=== PATIENT | male | born 1985 | race Caucasian/White ===

== ENCOUNTER 2018-09-22 22:13 | Emergency (ER) | payer MEDICAID ==
[~2018-09-22] VITALS: Ht 165.1 cm; Wt 54.4 kg
[2018-09-22 22:17] VITALS: BP 126/68
--- NOTE | 2018-09-22 22:30 | NUR ---
ABLE TO FIND PEDAL PULSES WITH DOPPLER.
--- NOTE | 2018-09-22 22:32 | NUR ---
Pulses present with use of doppler to right pedal pulse. Dr. Hopkins made aware. Pt able to move all toes and sensation intact.
--- NOTE | 2018-09-22 22:34 | NUR ---
PT WENT TO XRAY BY WHEEL CHAIR
--- NOTE | 2018-09-22 22:39 | NUR ---
PT RETURNED FROM RAD TO CHAIR E VIA WHEELCHAIR
[2018-09-22] MEDS ORDERED: MORPHINE SULFATE 4 MG/ML SYR IM ONE (22:40)
[2018-09-22] MEDS ORDERED: MORPHINE SULFATE 4 MG/ML SYR IVP ONE (22:45)
--- NOTE | 2018-09-22 22:46 | NUR ---
PT TX TO ER BED 2 AT THIS TIME VIA WHEELCHAIR
--- NOTE | 2018-09-22 22:50 | NUR ---
PT BIB FAMILY C/O RIGHT ANKLE PAIN S/P FALL. PT STATES HE WAS DRIMMING A PALM TREE AND FELL ABOUT 15 FT, DENIES N/V OR LOC; 10/10 ACHING PAIN TO SITE W/ MOVEMENT. PT STATES AFTER FALL HE WENT HOME AND TOOK A SHOWER AND FAMILY MADE HIM COME TO ER. --PT ACTING APPROPRIATLY, AMBULATES W/ ASSISTANCE. BREATHING EQUAL AND UNLABORED. --RIGHT FOOT/ANKLE: WEAK DORSAL PEDIAL PULSES TO RIGHT FOOT; +BLANCHING REDNESS TO DORSAL SURFACE, WARM DORSAL SURFACE, COOL PLANTAR SURFACE; CAP REFIL <2; +ECCYMOSIS TO ANKLE; +SUPINATION; AROM TO PHALANGES. --PT POSITION FOR COMFORT. ER MD AWARE OF PT STATUS. WILL CONTINUE TO MONITOR. PMH: DENIES
[2018-09-23] MEDS ORDERED: MORPHINE SULFATE 4 MG/ML SYR IM ONE (01:05)
[2018-09-23] MEDS ORDERED: MORPHINE SULFATE 4 MG/ML SYR IVP ONE (03:25)
[2018-09-23 03:46] VITALS: BP 134/86
--- NOTE | 2018-09-23 03:46 | NUR ---
Patient discharged with v/s stable. Written and verbal after care instructions given and explained thorougly to patient and brother. Copy of x-ray and CD with images given to patient. Patient alert, oriented and verbalized understanding of instructions translated in [place] by myself. Patient was assisted into wheel chair and assisted to car by [facility]. All questions addressed prior to discharge. ID band removed. Patient advised to follow up with a clinic for referral to orthopedic. Pt instructed to keep splint dry. Pt provided with crutches and instructions on how to use provided by myself. Rx of Ava and Motrin given. Opportunity to ask questions provided and answered.
== END 2018-09-23 03:46 | disposition home or self-care (01) ==
LOC: MED 22:13
DX: S82.301A Unspecified fracture of lower end of right tibia, initial encounter for closed fracture (principal); S82.831A Other fracture of upper and lower end of right fibula, initial encounter for closed fracture; F17.200 Nicotine dependence, unspecified, uncomplicated; W14.XXXA Fall from tree, initial encounter; Y93.89 Activity, other specified; Y92.89 Other specified places as the place of occurrence of the external cause; Y99.8 Other external cause status
CPT/HCPCS: 29125; 73610; 96372; 96374; 96376; 99283; J2270